=== PATIENT | male | born 1945 | race Caucasian/White ===

== ENCOUNTER → 2021-05-11 | Outpatient (REF) | payer MEDICARE, OTHER | LOC: M LAB REF 17:25 | PROVIDERS: ATTEND Dermatology | DX: L90.5 Scar conditions and fibrosis of skin (principal) | CPT/HCPCS: 17110; 87070; 87077; 87186; 87205; G0463 ==

== ENCOUNTER → 2022-01-02 | Outpatient (REF) | payer MEDICARE, OTHER | LOC: M SFHCDERM 14:13 | PROVIDERS: ATTEND Nurse Practitioner Family | DX: D23.4 Other benign neoplasm of skin of scalp and neck (principal) ==

== ENCOUNTER → 2023-10-23 | Outpatient (CLI) | payer MEDICARE, OTHER | LOC: M SLEEP 20:00 | PROVIDERS: ATTEND Physician Assistant | DX: G47.33 Obstructive sleep apnea (adult) (pediatric) (principal) ==

== ENCOUNTER → 2024-08-04 | Outpatient (CLI) | payer MEDICARE, OTHER | LOC: M SOG 07:36 | PROVIDERS: ATTEND Orthopaedic Surgery | DX: M25.561 Pain in right knee (principal); M25.562 Pain in left knee; M17.0 Bilateral primary osteoarthritis of knee ==

== ENCOUNTER → 2025-02-08 | Outpatient (REF) | payer MEDICARE, OTHER ==
[2025-02-08 12:09] LABS: BASO # 0.0 10^3/uL (0.0-0.2); BASO % 0.8 % (0.0-1.0); EOS # 0.1 10^3/uL (0.0-0.5); EOS % 1.2 % (0.0-3.0); LYMPH # 1.0 10^3/uL (1.5-5.0); LYMPH % 18.6 % (24.0-44.0); MONO # 0.9 10^3/uL (0.0-0.8); MONO % 17.2 % (2.0-8.0); NEUTROPHILS # 3.2 10^3/uL (1.5-8.5); NEUTROPHILS % 61.6 % (36.0-66.0); PLATELET COUNT, AUTOMATED 129 10^3/uL (150-450)
[2025-02-08 12:22] LABS: INR 1.17
[2025-02-08 12:37] LABS: ALT/SGPT 56.0 U/L (7.0-40); AST/SGOT 62.0 U/L (<34); C REACTIVE PROTEIN QUANTITATIV 1.02 MG/DL (<1.0); CALCIUM LEVEL 8.9 MG/DL (8.3-10.6); CARBON DIOXIDE LEVEL 26.0 MMOL/L (20-31); CHLORIDE LEVEL 107.0 MMOL/L (98-107); CREATININE FOR GFR 1.43 MG/DL (0.70-1.30); GLOMERULAR FILTRATION RATE 49.8 (>42); POTASSIUM SERUM 4.5 MMOL/L (3.5-5.1); SODIUM LEVEL 144.0 MMOL/L (136-145)
[2025-02-08 12:39] LABS: TOTAL 25(OH) VITAMIN D 35.9 NG/ML (20.0-100.0)
[2025-02-08 13:08] LABS: ESTIMATED AVERAGE GLUCOSE 103.0 MG/DL (60-110)
== END ==
LOC: M LABDRWCV 11:44
PROVIDERS: ATTEND Orthopaedic Surgery
DX: M17.11 Unilateral primary osteoarthritis, right knee (principal); Z79.01 Long term (current) use of anticoagulants; Z79.899 Other long term (current) drug therapy

== ENCOUNTER 2025-03-16 06:39 | Day surgery (SDC) | payer MEDICARE, OTHER ==
[~2025-03-16] VITALS: Ht 188 cm; Wt 124.5 kg
[~2025-03-16 06:39] MED LIST: CYAN500T14 PO; ELIQ5TAB PO; FURO40TA2 PO; NIFE1TAB52 PO; OLME40TA PO; PITA4TAB2 PO; POTA1TAB23 PO; ROPI2TAB46 PO; SOTA80TA2 PO; TERA2CAP3 PO; THERTAB52 PO
[2025-03-16] MEDS ORDERED: hydrALAZINE 20 MG/ML 1 ML VIAL As Ordered ONE (08:28)
[2025-03-16 08:35] VITALS: TEMP 98
[2025-03-16 08:53] VITALS: BP 117/77; O2SAT 99
== END 2025-03-16 09:10 | disposition home or self-care (01) ==
LOC: M OPP 06:39
PROVIDERS: ATTEND Surgery
DX: K57.30 Diverticulosis of large intestine without perforation or abscess without bleeding (principal); Z98.0 Intestinal bypass and anastomosis status; Z85.038 Personal history of other malignant neoplasm of large intestine; Z79.01 Long term (current) use of anticoagulants; G47.30 Sleep apnea, unspecified; Z88.2 Allergy status to sulfonamides; Z88.8 Allergy status to other drugs, medicaments and biological substances; Z79.899 Other long term (current) drug therapy; I48.91 Unspecified atrial fibrillation
CPT/HCPCS: 45378; J0360

== ENCOUNTER → 2025-03-25 | Outpatient (CLI) | payer MEDICARE, OTHER | LOC: M EKG 08:22 | PROVIDERS: ATTEND Registered Nurse | DX: I48.0 Paroxysmal atrial fibrillation (principal); Z53.9 Procedure and treatment not carried out, unspecified reason ==

== ENCOUNTER → 2025-03-29 | Outpatient (REF) | payer MEDICARE, OTHER | LOC: M LAB REF 16:41 | PROVIDERS: ATTEND Orthopaedic Surgery | DX: Z01.818 Encounter for other preprocedural examination (principal) ==

== ENCOUNTER → 2025-04-23 | Outpatient (REF) | payer MEDICARE, OTHER ==
[2025-04-23 13:52] LABS: CALCIUM LEVEL 8.5 MG/DL (8.3-10.6); CARBON DIOXIDE LEVEL 26.0 MMOL/L (20-31); CHLORIDE LEVEL 108.0 MMOL/L (98-107); CREATININE FOR GFR 1.41 MG/DL (0.70-1.30); GLOMERULAR FILTRATION RATE 50.7 (>42); PHOSPHORUS LEVEL 3.2 MG/DL (2.4-5.1); POTASSIUM SERUM 4.1 MMOL/L (3.5-5.1); SODIUM LEVEL 143.0 MMOL/L (136-145)
[2025-04-23 13:58] LABS: PLATELET COUNT, AUTOMATED 163 10^3/uL (150-450)
[2025-04-23 15:19] LABS: IRON (FE) 63.0 UG/DL (65-175); PERCENT SATURATION 21.6 % (19.7-50.0)
== END ==
LOC: M LABDRAWC 12:58
PROVIDERS: ATTEND Internal Medicine Cardiovascular Disease
DX: R07.9 Chest pain, unspecified (principal); I50.32 Chronic diastolic (congestive) heart failure; I25.10 Atherosclerotic heart disease of native coronary artery without angina pectoris

== ENCOUNTER → 2025-05-25 | Outpatient (REF) | payer MEDICARE, OTHER ==
[2025-05-25 20:55] LABS: VITAMIN B12 LEVEL 1603 PG/ML (211-911)
[2025-05-25 21:12] LABS: IRON (FE) 70 UG/DL (65-175); PERCENT SATURATION 23.1 % (19.7-50.0)
[2025-05-25 21:27] LABS: HEPATITIS C VIRUS ABY INDEX < 0.02 INDEX (<0.8)
== END ==
LOC: M LAB REF 17:12
PROVIDERS: ATTEND Internal Medicine
DX: D64.9 Anemia, unspecified (principal); K75.81 Nonalcoholic steatohepatitis (NASH)

== ENCOUNTER → 2025-07-12 | Outpatient (REF) | payer MEDICARE, OTHER ==
[2025-07-12 12:32] LABS: CALCIUM LEVEL 8.2 MG/DL (8.3-10.6); CARBON DIOXIDE LEVEL 30.0 MMOL/L (20-31); CHLORIDE LEVEL 106.0 MMOL/L (98-107); CREATININE FOR GFR 1.89 MG/DL (0.70-1.30); GLOMERULAR FILTRATION RATE 35.7 (>42); MAGNESIUM LEVEL 2.1 MG/DL (1.8-2.4); POTASSIUM SERUM 4.3 MMOL/L (3.5-5.1); SODIUM LEVEL 141.0 MMOL/L (136-145)
== END ==
LOC: M LABDRAWC 12:05
PROVIDERS: ATTEND Nurse Practitioner Family
DX: I50.32 Chronic diastolic (congestive) heart failure (principal)